=== PATIENT | male | born 1955 | race Native Hawaiian/Other Pacific Islander ===

== ENCOUNTER 2017-06-09 07:50 | Outpatient (CLI) | payer OTHER | END 2017-06-09 19:23 | disposition home or self-care (01) | LOC: NM 07:50 | DX: R06.09 Other forms of dyspnea (principal) | CPT/HCPCS: A9500 ==

== ENCOUNTER 2018-12-09 16:35 | Emergency (ER) | payer OTHER ==
[~2018-12-09] VITALS: Ht 175.3 cm; Wt 99.8 kg
[2018-12-09 17:03] VITALS: BP 150/92; TEMP 98
== END 2018-12-09 18:35 | disposition home or self-care (01) ==
LOC: ED 16:35
DX: S20.212A Contusion of left front wall of thorax, initial encounter (principal); S20.211A Contusion of right front wall of thorax, initial encounter; S43.401A Unspecified sprain of right shoulder joint, initial encounter; V89.2XXA Person injured in unspecified motor-vehicle accident, traffic, initial encounter
CPT/HCPCS: 99283

== ENCOUNTER 2020-07-28 06:55 | Emergency (ER) | payer BC ==
[~2020-07-28] VITALS: Ht 175.3 cm; Wt 99.8 kg
[2020-07-28 07:00] VITALS: BP 151/91; TEMP 97.8
== END 2020-07-28 08:42 | disposition home or self-care (01) ==
LOC: ED 06:55
DX: T63.441A Toxic effect of venom of bees, accidental (unintentional), initial encounter (principal); S60.453A Superficial foreign body of left middle finger, initial encounter; Y92.89 Other specified places as the place of occurrence of the external cause
CPT/HCPCS: 96372; 99282; 99283; J2930

== ENCOUNTER 2022-10-06 10:08 | Outpatient (CLI) | payer OTHER | END 2022-10-06 21:20 | disposition home or self-care (01) | LOC: RAD 10:08 | PROVIDERS: ATTEND Nurse Practitioner | DX: M25.532 Pain in left wrist (principal) ==